=== PATIENT | male | born 1960 | race Caucasian/White ===

== ENCOUNTER 2016-10-07 09:49 | Inpatient (IN) | payer MEDICAID ==
[~2016-10-07] VITALS: Ht 175.3 cm; Wt 65.8 kg
[~2016-10-07 09:49] MED LIST: ASPIRIN325 MG PO; ATROVENT 0.02%2.5 ML UPD; BETAPACE 80 MG80 MG PO; BREO ELLIPTA 21 EACH; BROVANA15 MCG/2 M INH; DIFLUCAN100 MG PO; FLUTICASONE PRO16 GM NASAL; HYDROCODON-ACE1 EAC7 PO; MULTAQ400 MG PO; PEPCID20 MG PO; PULMICORT0.5 MG/21 INH; SINGULAIR10 MG PO; VIBRAMYCIN 100100 MG PO; ellipta INH
[2016-10-07 11:11] LABS: BASOPHILS 0.1 % (0.0-2.0); EOSINOPHILS 0 % (0-7); HEMATOCRIT 37.3 % (42.0-54.0); HEMOGLOBIN 13.4 g/dL (13.5-17.5); IMMATURE GRANULOCYTES 0.8 % (0-5); LYMPHOCYTES 6.9 % (15-50); MCH 34.4 pg (26.0-34.0); MCHC 35.9 g/dL (31.0-37.0); MCV 95.6 fL (80.0-100.0); MEAN PLATELET VOLUME 9.3 fL (7.4-10.4); NEUTROPHILS 81.2 % (40-80); RDW 15.6 % (11.5-14.5); WBC 14.1 10x3/uL (4.8-10.8)
[2016-10-07 11:16] LABS: PLATELET COUNT 176 10x3/uL (130-400)
[2016-10-07 11:30] LABS: ALBUMIN 3.4 g/dL (3.4-5.0); ANION GAP 13.1 mmol/L (8-16); BILIRUBIN - TOTAL 1.6 mg/dL (0.2-1.3); CALCIUM 8.8 mg/dL (8.5-10.1); CARBON DIOXIDE 26.6 mmol/L (21.0-32.0); CREATININE - SERUM 1.2 mg/dL (0.6-1.3); POTASSIUM - SERUM 3.7 mmol/L (3.5-5.1); PROTEIN - SERUM 6.8 g/dL (6.4-8.2)
[2016-10-07 15:15] VITALS: BP 139/65; BMI 21.4
[2016-10-07 16:27] VITALS: BP 135/65
[2016-10-07 21:14] VITALS: BP 104/65
--- NOTE | 2016-10-07 21:15 | NUR ---
1926: PATIENT'S HR BETWEEN 150-160'S A-FIB RVR PER 2019: SPOKE WITH DR. BEST. DR. BEST ASKED THAT CARDIOLOGY BE CONSULTED. DR. CORRAL ORDERED 5MG IV LOPRESSOR AND THE PATIENT'S 2100 DOSE OF SOTALOL BE GIVEN. 2055: IV LOPRESSOR PUSHED
--- NOTE | 2016-10-08 03:00 | NUR ---
PATIENT SLEEPING IN SEMI-FOWLERS POSITION. NO VISIBLE SIGNS OF DISTRESS. PATIENTS BED IN LOWEST POSITION AND CALL LIGHT WITHIN REACH.
[2016-10-08 05:28] LABS: HEMATOCRIT 35.8 % (42.0-54.0); HEMOGLOBIN 12.6 g/dL (13.5-17.5); MCH 33.7 pg (26.0-34.0); MCHC 35.2 g/dL (31.0-37.0); MCV 95.7 fL (80.0-100.0); MEAN PLATELET VOLUME 9.8 fL (7.4-10.4); PLATELET COUNT 178 10x3/uL (130-400); RBC 3.74 10x6/uL (4.20-6.10); RDW 15.5 % (11.5-14.5)
[2016-10-08 05:52] LABS: ALBUMIN 2.7 g/dL (3.4-5.0); ALKALINE PHOSPHATASE 46 U/L (46-116); ALT (SGPT) 15 U/L (10-68); CALC OSMOLALITY 258 mosm/kg (275-300); CALCIUM 8.6 mg/dL (8.5-10.1); CARBON DIOXIDE 22.7 mmol/L (21.0-32.0); CHLORIDE - SERUM 92 mmol/L (98-107); CREATININE - SERUM 0.9 mg/dL (0.6-1.3); GLUCOSE 114 mg/dL (74-106); POTASSIUM - SERUM 3.8 mmol/L (3.5-5.1); PROTEIN - SERUM 6.2 g/dL (6.4-8.2); SODIUM 127 mmol/L (136-145); UREA NITROGEN 20 mg/dL (7-18); eGFR NON AFRICAN AMERICAN > 90 mL/min (90-120)
[2016-10-08 08:12] LABS: LYMPHOCYTES 8 % (15-50); MONOCYTES 2 % (2-11); NEUTROPHILS 74 % (40-80); PLATELET ESTIMATE DECREASED
[2016-10-08 08:36] VITALS: BP 116/78
--- NOTE | 2016-10-08 09:48 | NUR ---
Patient Name: VALORIE VINCENT Admission Status: ER Accout number: [id number] Admission Date: 10-07-2016 : 1960 Admission Diagnosis: Attending: LYNSEY Current LOS: 1 Anticipated DC Date: 10-10-2016 Planned Disposition: Home or Self Care Primary Insurance: [place] [employer] [place] Discharge Planning Comments: CM MET WITH PATIENT REGARDING DISCHARGE NEEDS AND PLANS. PATIENT STATED HE LIVES WITH HIS GIRLFRIEND (DALTON) AND SHE WILL PICK HIM UP AT DISCHARGE. PATIENT STATED HE HAS 3 STEPS W/O RAILS TO ENTER HOME AND NO STAIRS INSIDE. PATIENT IS INDEPENDENT WITH HIS CARE AND HAS NO DME AT HOME. PATIENTS PCP IS DR. HANSON AND PHARMACY IS [facility] AT [place]. PATIENT STATED HE DOES NOT NEED HOME HEALTH AT THIS TIME. CM WILL CONTINUE TO FOLLOW PATIENT WITH D/C NEEDS AND PLANS. PCP DR[facility]- [phone] DALTON (GIRLFRIEND) [phone] Lamp Assembler: Fiona Mueller Is the patient Alert and Oriented? Yes 0 * How many steps to enter\exit or inside your home? 3 W/O RAIL 0 * PCP DR. HANSON 0 * Pharmacy [facility] [place] 0 * Preadmission Environment Home with Family 0 * ADLs Independent 0 * Equipment None 0 * List name and contact numbers for known caregivers / representatives who currently or will assist patient after discharge: DALTON SORIA (GIRLFRIEND) [phone] 0 * Community resources currently utilized None 0 * Additional services required to return to the preadmission environment? Yes 0 * Can the patient safely return to the preadmission environment? Yes 0 * Has this patient been hospitalized within the prior 30 days at any hospital? No 0 Grand Total: 0
[2016-10-08 13:10] VITALS: Ht 175.3 cm; Wt 65.8 kg
[2016-10-08 13:48] VITALS: BP 125/71
[2016-10-08 16:01] VITALS: BP 121/72
[2016-10-08 20:00] VITALS: BP 123/75
--- NOTE | 2016-10-09 00:55 | NUR ---
PT LAYING IN BED NO DISTRESS OBSERVED CALL LIGHT IN REACH SRX2 BED LOW AND LOCKED RIGHT INFUSA PROT INFUSING WITH FLUIDS ORDERED AND PT TOLERATING WELL. PT DENIES NEEDS WANTS OR PAIN AT THIS TIME AND PO HS MEDS ADMIN. WILL MONITOR
[2016-10-09 01:00] VITALS: BP 105/69
[2016-10-09 05:00] VITALS: BP 119/71
--- NOTE | 2016-10-09 05:19 | NUR ---
PT LAYING IN BED INFUSAPORT INFUSING ORDERED AND NO DISTRESS OBSERVED CALL LIGHT IN REACH SRX2 BED LOW AND LOCKED LABS DRAWN FROM PORT AND LAB RECIVED WAITING FOR RESULTS
[2016-10-09 05:37] LABS: BASOPHILS 0.1 % (0.0-2.0); EOSINOPHILS 0 % (0-7); HEMATOCRIT 33.8 % (42.0-54.0); IMMATURE GRANULOCYTES 0.3 % (0-5); LYMPHOCYTES 7.3 % (15-50); MCHC 35.5 g/dL (31.0-37.0); MCV 95.8 fL (80.0-100.0); MEAN PLATELET VOLUME 9.8 fL (7.4-10.4); MONOCYTES 8.8 % (2-11); NEUTROPHILS 83.5 % (40-80); PLATELET COUNT 202 10x3/uL (130-400); RBC 3.53 10x6/uL (4.20-6.10); RDW 15.6 % (11.5-14.5); WBC 13.7 10x3/uL (4.8-10.8)
[2016-10-09 05:55] LABS: ALBUMIN 2.5 g/dL (3.4-5.0); ALKALINE PHOSPHATASE 46 U/L (46-116); BILIRUBIN - TOTAL 0.75 mg/dL (0.2-1.3); CALCIUM 9.1 mg/dL (8.5-10.1); CARBON DIOXIDE 25.7 mmol/L (21.0-32.0); CHLORIDE - SERUM 93 mmol/L (98-107); CREATININE - SERUM 0.9 mg/dL (0.6-1.3); GLUCOSE 144 mg/dL (74-106); POTASSIUM - SERUM 3.8 mmol/L (3.5-5.1); PROTEIN - SERUM 7.2 g/dL (6.4-8.2); SODIUM 128 mmol/L (136-145); eGFR NON AFRICAN AMERICAN > 90 mL/min (90-120)
[2016-10-09 05:57] LABS: ALT (SGPT) 25 U/L (10-68); CALC OSMOLALITY 266 mosm/kg (275-300); UREA NITROGEN 31 mg/dL (7-18)
--- NOTE | 2016-10-09 07:43 | NUR ---
PT ASSESSMENT COMPLETE NO ACUTE DISTRESS NOTED LUNGS CLEAR WITH DIMINISHED LEFT BASE NO DIFFICULTY BREATHING NO COUGH NOTED AT THIS TIME. CAF ON MONITOR RATE OF 86 SCDS ON MAKES ALL NEEDS KNOWN CALL LIGHT IN REACH SIDE RAILS UP X 2
[2016-10-09 08:11] VITALS: BP 117/79
--- NOTE | 2016-10-09 10:44 | NUR ---
NO ACUTE DISTRESS SITTING UP IN CHAIR AT BEDSIDE CALL LIGHT IN REACH
[2016-10-09 11:40] VITALS: BP 124/72
--- NOTE | 2016-10-09 15:31 | NUR ---
PT RESTING IN BED NO ACUTE DISRTRESS NOTED COLLECTED SPUTUM CULTURE PER ORDER WELL URINE PER ORDER SENT TO LAB WILL MONITOR.
[2016-10-09 16:13] VITALS: BP 121/85
--- NOTE | 2016-10-09 16:20 | NUR ---
PATIENT SITTING UP IN CHAIR WITH NO COMPLAINTS AT THIS TIME. IV INTACT. O2 ON. CALL LIGHT WITHIN REACH.
--- NOTE | 2016-10-09 17:25 | NUR ---
PT AWAKE AND SITTING UP FAMILY VISITING ATE ONLY 3 BITES OF MEAL PT STATES THAT HIS APITITE IS VERY POOR WITH CHEMO
[2016-10-09 21:00] VITALS: BP 126/75
[2016-10-10 00:30] VITALS: BP 114/70
[2016-10-10 05:00] VITALS: BP 139/79
[2016-10-10 05:46] LABS: CALC OSMOLALITY 263 mosm/kg (275-300); CALCIUM 8.7 mg/dL (8.5-10.1); CARBON DIOXIDE 24.8 mmol/L (21.0-32.0); CHLORIDE - SERUM 94 mmol/L (98-107); CREATININE - SERUM 0.9 mg/dL (0.6-1.3); GLUCOSE 123 mg/dL (74-106); POTASSIUM - SERUM 3.6 mmol/L (3.5-5.1); SODIUM 128 mmol/L (136-145); UREA NITROGEN 30 mg/dL (7-18); eGFR NON AFRICAN AMERICAN > 90 mL/min (90-120)
--- NOTE | 2016-10-10 07:00 | NUR ---
REPORT RECIEVED ASSUMED CARE. PATIENT IN BED WITH IV INTACT. NO COMPLAINTS. CALL LIGHT WITHIN REACH.
[2016-10-10 07:51] VITALS: BP 145/81
--- NOTE | 2016-10-10 12:07 | NUR ---
NUTRITION MONITORING & EVAL CHART REVIEWED, PT VISIT. TOLERATING REG DIET. 100% INTAKE MOST MEALS. WILL CONTINUE TO HONOR FOOD PREFERENCES, MONITOR PT PROGRESS. RD FOLLOWING
[2016-10-10 12:29] VITALS: BP 146/77
[2016-10-10 16:37] VITALS: BP 137/78
--- NOTE | 2016-10-10 18:45 | NUR ---
PATIENT SITTING UP IN CHAIR WITH NO COMPLAINTS. IV INTACT. CALL LIGHTW ITHIN REACH.
[2016-10-10 19:00] VITALS: BP 139/57
[2016-10-11 04:00] VITALS: BP 135/61
--- NOTE | 2016-10-11 04:03 | NUR ---
ASSESSED AT THE BEGINNING OF THE SHIFT. HE IS ABLE TO VERBALIZE HIS NEEDS HE IS ALERT AND ORIENTED X'S 3 . HE IS WEARING TELEMETRY AND IT IS ABOUT 70 SINUS RHYTHM. HIS O2 IS AT 2 LITERS AND HE IS USING A URINAL OR GOING TO THE BATHROOM. HE IS PLEASANT AND STAYS UP IN HIS BEDSIDE CHAIR MOST OF THE EVENING. THE BED IS LOW, RAILS UP X'S 2 WITH THE CALL LIGHT AT HAND.
[2016-10-11 06:57] LABS: BASOPHILS 0 % (0.0-2.0); EOSINOPHILS 0.2 % (0-7); HEMATOCRIT 27.9 % (42.0-54.0); HEMOGLOBIN 9.8 g/dL (13.5-17.5); IMMATURE GRANULOCYTES 0.4 % (0-5); LYMPHOCYTES 9.5 % (15-50); MCHC 35.1 g/dL (31.0-37.0); MCV 96.9 fL (80.0-100.0); MEAN PLATELET VOLUME 9.6 fL (7.4-10.4); MONOCYTES 8.5 % (2-11); NEUTROPHILS 81.4 % (40-80); PLATELET COUNT 219 10x3/uL (130-400); RBC 2.88 10x6/uL (4.20-6.10); RDW 15.7 % (11.5-14.5)
--- NOTE | 2016-10-11 07:00 | NUR ---
PT REC'D FROM [facility]. RESTING IN CHAIR AT BEDSIDE. STREET CLOTHES ON. PT STATES, "I DON'T NEED TO BE HERE ANYMORE. I NEED TO GO HOME." TOLD PT THAT I WAS WAITING ON DC ORDERS. NO COMPLAINTS OF PAIN. AAOX4. CALL LIGHT IN REACH, DENIES NEEDS.
[2016-10-11 07:01] LABS: WBC 9.3 10x3/uL (4.8-10.8)
[2016-10-11 07:10] LABS: CALC OSMOLALITY 270 mosm/kg (275-300); CALCIUM 8.2 mg/dL (8.5-10.1); CARBON DIOXIDE 25.7 mmol/L (21.0-32.0); CHLORIDE - SERUM 99 mmol/L (98-107); CREATININE - SERUM 0.7 mg/dL (0.6-1.3); GLUCOSE 108 mg/dL (74-106); POTASSIUM - SERUM 3.7 mmol/L (3.5-5.1); SODIUM 133 mmol/L (136-145); UREA NITROGEN 23 mg/dL (7-18); eGFR NON AFRICAN AMERICAN > 90 mL/min (90-120)
[2016-10-11 08:55] VITALS: BP 156/73
--- NOTE | 2016-10-11 09:15 | NUR ---
MORNING MEDS PASSED AT THIS TIME. NO COMPLAINTS OF PAIN. PT WONDERING WHEN HE WILL BE DC'D. TOLD PT I WOULD TALK TO DR. BEST AND DR. TORO.
[2016-10-11] MEDS ORDERED: LOPRESSOR25 MG PO (12:34)
[2016-10-11] MEDS ORDERED: BENZONATATE200 MG PO (12:36)
[2016-10-11] MEDS ORDERED: PREDNISONE20 MG PO (12:40)
--- NOTE | 2016-10-11 14:14 | NUR ---
DISCUSSED DC INSTRUCTIONS WITH PT AND PT . NO QUESTIONS OR CONCERNS VOICED AT THIS TIME. DISCUSSED WHEN F/U APPOINTMENTS WOULD BE. R CHEST PORT DEACCESSED AND PRESSURE DRESSING APPLIED. ESCORTED OUT VIA WC. DC TO HOME.
--- NOTE | 2016-10-11 14:45 | NUR ---
DR Herrera ask if CM if any assistance was available for the patient. He lives in [place]. His has a job collecting eggs. CM provided contact card for the [employer] for referrals for assistance. CM will also research possible assistance w/ local churches. Will follow up on Thursday. Patient does not desire any home health services.
== END 2016-10-11 14:22 | disposition home or self-care (01) | DRG 190 ==
LOC: D.ER 09:49 → D.MS 14:05
PROVIDERS: Emergency Medicine; Internal Medicine Pulmonary Disease; ADMIT Internal Medicine Hematology & Oncology
DX: J44.0 Chronic obstructive pulmonary disease with (acute) lower respiratory infection (principal); J15.6 Pneumonia due to other Gram-negative bacteria; J13 Pneumonia due to Streptococcus pneumoniae; E87.1 Hypo-osmolality and hyponatremia; F17.203 Nicotine dependence unspecified, with withdrawal; C34.90 Malignant neoplasm of unspecified part of unspecified bronchus or lung; J44.1 Chronic obstructive pulmonary disease with (acute) exacerbation; I10 Essential (primary) hypertension; G47.33 Obstructive sleep apnea (adult) (pediatric); I48.91 Unspecified atrial fibrillation; D64.9 Anemia, unspecified; I08.1 Rheumatic disorders of both mitral and tricuspid valves

== ENCOUNTER 2016-10-13 19:37 | Inpatient (IN) | payer SELFPAY ==
[~2016-10-13] VITALS: Ht 175.3 cm; Wt 70.3 kg
[~2016-10-13 19:37] MED LIST changes: +BENZONATATE200 MG PO; +LOPRESSOR25 MG PO; +PREDNISONE20 MG PO
[2016-10-13 21:55] LABS: BASOPHILS 0 % (0.0-2.0); EOSINOPHILS 0.4 % (0-7); HEMATOCRIT 30.8 % (42.0-54.0); HEMOGLOBIN 10.7 g/dL (13.5-17.5); IMMATURE GRANULOCYTES 3.2 % (0-5); LYMPHOCYTES 14.7 % (15-50); MCH 33.5 pg (26.0-34.0); MCHC 34.7 g/dL (31.0-37.0); MCV 96.6 fL (80.0-100.0); MEAN PLATELET VOLUME 9.6 fL (7.4-10.4); MONOCYTES 13.5 % (2-11); NEUTROPHILS 68.2 % (40-80); RBC 3.19 10x6/uL (4.20-6.10); RDW 15.1 % (11.5-14.5); WBC 10.4 10x3/uL (4.8-10.8)
[2016-10-13 22:03] LABS: PLATELET COUNT 297 10x3/uL (130-400)
[2016-10-13 22:06] LABS: ALBUMIN 2.3 g/dL (3.4-5.0); ALKALINE PHOSPHATASE 63 U/L (46-116); ALT (SGPT) 49 U/L (10-68); CALC OSMOLALITY 259 mosm/kg (275-300); CARBON DIOXIDE 28.9 mmol/L (21.0-32.0); CHLORIDE - SERUM 93 mmol/L (98-107); CREATININE - SERUM 0.7 mg/dL (0.6-1.3); GLUCOSE 134 mg/dL (74-106); PROTEIN - SERUM 5.7 g/dL (6.4-8.2); SODIUM 129 mmol/L (136-145); UREA NITROGEN 10 mg/dL (7-18); eGFR NON AFRICAN AMERICAN > 90 mL/min (90-120)
[2016-10-13 22:09] LABS: POTASSIUM - SERUM 2.8 mmol/L (3.5-5.1)
[2016-10-13 22:15] LABS: TROPONIN-I < 0.017 ng/mL (0.000-0.060)
[2016-10-14] VITALS (20 sets, daily range): BP systolic 102–136; BP diastolic 54–78; Ht 175.3 cm; Wt 70.3 kg
--- NOTE | 2016-10-14 00:14 | NUR ---
REC'D TO ROOM 2316 VIA W/C FROM ER - PT AMBULATED SELF TO BED. ICU MONITORS ESTAB. SEE ADMISSION HISTORY AND ASSESSMENT. CARDIZEM GTT AT 10MG/HR INFUSING TO R CHEST INFUSAPORT, DSG C/D/I. CM - CAF. PT ALERT AND ORIENTED, ANSWERS ALL QUESTIONS APPROP. ALARMS ON. PT ORIENTED TO ICU - C/L IN REACH.
--- NOTE | 2016-10-14 01:32 | NUR ---
PT RESTING ON L SIDE, VSS. NO SIGN OF DISTRESS. CM - CAF.
--- NOTE | 2016-10-14 04:00 | NUR ---
REASSESSMENT PER FLOWSHEET, NO ACUTE CHANGES. PT AWAKENS EASILY, DENIES PAIN OR NEEDS. VSS, CM - CAF
[2016-10-14 07:38] LABS: BASOPHILS 0.1 % (0.0-2.0); EOSINOPHILS 0.4 % (0-7); HEMATOCRIT 28.3 % (42.0-54.0); HEMOGLOBIN 10.1 g/dL (13.5-17.5); LYMPHOCYTES 17.3 % (15-50); MCH 34.2 pg (26.0-34.0); MCHC 35.7 g/dL (31.0-37.0); MCV 95.9 fL (80.0-100.0); MEAN PLATELET VOLUME 9.4 fL (7.4-10.4); MONOCYTES 14.5 % (2-11); NEUTROPHILS 63.7 % (40-80); RBC 2.95 10x6/uL (4.20-6.10); RDW 15.1 % (11.5-14.5)
[2016-10-14 07:45] LABS: ALKALINE PHOSPHATASE 54 U/L (46-116); ALT (SGPT) 40 U/L (10-68); CALC OSMOLALITY 261 mosm/kg (275-300); CALCIUM 8.3 mg/dL (8.5-10.1); CARBON DIOXIDE 27.3 mmol/L (21.0-32.0); CHLORIDE - SERUM 97 mmol/L (98-107); CREATININE - SERUM 0.6 mg/dL (0.6-1.3); GLUCOSE 104 mg/dL (74-106); MAGNESIUM - SERUM 1.6 mg/dL (1.8-2.4); PLATELET COUNT 236 10x3/uL (130-400); POTASSIUM - SERUM 3.6 mmol/L (3.5-5.1); PROTEIN - SERUM 6.1 g/dL (6.4-8.2); SODIUM 131 mmol/L (136-145); UREA NITROGEN 10 mg/dL (7-18); eGFR NON AFRICAN AMERICAN > 90 mL/min (90-120)
--- NOTE | 2016-10-14 08:53 | NUR ---
0850-BREAKFAST TRAY GIVEN, CARDIOLOGY NOTIFIED OF CONSULT.
--- NOTE | 2016-10-14 13:40 | NUR ---
Is the patient Alert and Oriented? Yes 0 * How many steps to enter\exit or inside your home? 3 0 * PCP DR. HANSON 0 * Pharmacy [facility] IN [place] 0 * Preadmission Environment Home with Family 0 * ADLs Independent 0 * Equipment Nebulizer 0 * List name and contact numbers for known caregivers / representatives who currently or will assist patient after discharge: : DALTON [phone] 0 * Community resources currently utilized None 0 * Additional services required to return to the preadmission environment? No 0 * Can the patient safely return to the preadmission environment? Yes 0 * Has this patient been hospitalized within the prior 30 days at any hospital? Yes PATIENT STATES HE LIVES AT HOME WITH HIS , DALTON. SHE WILL BE AVAILABLE TO DRIVE HIM HOME AT DISCHARGE. PATIENT'S PCP IS DR. HANSON. HE GETS HIS MEDS AT [facility] IN [place]. PATIENT HAS A NEBULIZER THAT [facility] [employer] [facility] [address]. PATIENT DENIES EVER HAVING HOME HEALTH CARE. HE STATES THERE ARE 3 STEPS TO ENTER HIS HOME. NO DISCHARGE NEEDS AT THIS TIME.
--- NOTE | 2016-10-14 19:04 | NUR ---
RECIEVED FROM ICU. ALERT AND ORIENTED. TELEMETERY SHOWS CAF. DENIES ANY NEEDS. CALL LIGHT IN REACH
[2016-10-15 01:22] VITALS: BP 117/55
[2016-10-15 05:33] LABS: BASOPHILS 0.1 % (0.0-2.0); EOSINOPHILS 1.2 % (0-7); HEMATOCRIT 27.2 % (42.0-54.0); HEMOGLOBIN 9.6 g/dL (13.5-17.5); IMMATURE GRANULOCYTES 2.5 % (0-5); LYMPHOCYTES 18.7 % (15-50); MCH 34.2 pg (26.0-34.0); MCHC 35.3 g/dL (31.0-37.0); MCV 96.8 fL (80.0-100.0); MEAN PLATELET VOLUME 9.4 fL (7.4-10.4); MONOCYTES 14.1 % (2-11); NEUTROPHILS 63.4 % (40-80); PLATELET COUNT 278 10x3/uL (130-400); RBC 2.81 10x6/uL (4.20-6.10); RDW 15.4 % (11.5-14.5); WBC 8.2 10x3/uL (4.8-10.8)
[2016-10-15 05:51] LABS: CALC OSMOLALITY 263 mosm/kg (275-300); CALCIUM 7.9 mg/dL (8.5-10.1); CARBON DIOXIDE 27.7 mmol/L (21.0-32.0); CHLORIDE - SERUM 98 mmol/L (98-107); CREATININE - SERUM 0.6 mg/dL (0.6-1.3); GLUCOSE 92 mg/dL (74-106); POTASSIUM - SERUM 3.6 mmol/L (3.5-5.1); SODIUM 132 mmol/L (136-145); UREA NITROGEN 10 mg/dL (7-18); eGFR NON AFRICAN AMERICAN > 90 mL/min (90-120)
[2016-10-15 06:27] VITALS: BP 97/43
--- NOTE | 2016-10-15 07:24 | NUR ---
PT LAYING IN BED NO DISTRESS OBSERVED CALL LIGHT IN REACH SRX2 BED LOW AND LOCKED RESPERATIONS EVEN AND UNLABORED ON 2LNC AND PT RECIVING BREATHING TREATMENTS THROUGH THE NIGHT AND ANTIBX. IVP INFUSING AND NO INFALTRATION OBSERVED WILL MONITOR
[2016-10-15 07:50] VITALS: BP 122/56
--- NOTE | 2016-10-15 09:29 | NUR ---
TELEMETRY SR. IV PATENT. AT BS. CALL LIGHT IN REACH. WILL MONITOR NEEDS.
--- NOTE | 2016-10-15 10:51 | NUR ---
Nutrition follow-up: Diet: Low sodium PO intake 100% of last 3 meals Labs reviewed RDN helped pt fill out menus Wt: 152# RDN following.
[2016-10-15 11:59] VITALS: BP 116/54
[2016-10-15 12:05] LABS: APPEARANCE CLEAR (CLEAR); BILIRUBIN NEGATIVE (NEGATIVE); COLOR YELLOW (YELLOW); GLUCOSE NEGATIVE (NEGATIVE); KETONE NEGATIVE (NEGATIVE); LEUKOCYTE ESTERASE NEGATIVE (NEGATIVE); NITRITE NEGATIVE (NEGATIVE); PROTEIN NEGATIVE (NEGATIVE); SPECIFIC GRAVITY 1.005 (1.005-1.020); UROBILINOGEN NORMAL (NORMAL)
[2016-10-15 12:06] LABS: UDS - AMPHET NEGATIVE QUAL (NEGATIVE); UDS - BARB NEGATIVE QUAL (NEGATIVE); UDS - BENZO NEGATIVE QUAL (NEGATIVE); UDS - COCAINE NEGATIVE QUAL (NEGATIVE); UDS - METH NEGATIVE QUAL (NEGATIVE); UDS - OPIATE POSITIVE QUAL (NEGATIVE); UDS - PCP NEGATIVE QUAL (NEGATIVE); UDS - THC POSITIVE QUAL (NEGATIVE)
[2016-10-15 16:44] VITALS: BP 134/61
[2016-10-15 20:20] VITALS: BP 145/71
[2016-10-16 01:10] VITALS: BP 139/65
[2016-10-16 05:14] VITALS: BP 129/62
[2016-10-16 05:23] LABS: BASOPHILS 0.1 % (0.0-2.0); EOSINOPHILS 0.7 % (0-7); HEMATOCRIT 28.2 % (42.0-54.0); HEMOGLOBIN 9.8 g/dL (13.5-17.5); IMMATURE GRANULOCYTES 1.4 % (0-5); LYMPHOCYTES 13.2 % (15-50); MCHC 34.8 g/dL (31.0-37.0); MCV 97.9 fL (80.0-100.0); MEAN PLATELET VOLUME 9.5 fL (7.4-10.4); MONOCYTES 12.6 % (2-11); PLATELET COUNT 310 10x3/uL (130-400); RBC 2.88 10x6/uL (4.20-6.10); RDW 15.2 % (11.5-14.5); WBC 9.7 10x3/uL (4.8-10.8)
[2016-10-16 05:34] LABS: CALC OSMOLALITY 260 mosm/kg (275-300); CALCIUM 8.3 mg/dL (8.5-10.1); CARBON DIOXIDE 24.9 mmol/L (21.0-32.0); CHLORIDE - SERUM 98 mmol/L (98-107); CREATININE - SERUM 0.7 mg/dL (0.6-1.3); GLUCOSE 90 mg/dL (74-106); POTASSIUM - SERUM 3.6 mmol/L (3.5-5.1); SODIUM 131 mmol/L (136-145); eGFR NON AFRICAN AMERICAN > 90 mL/min (90-120)
[2016-10-16 05:40] LABS: UREA NITROGEN 7 mg/dL (7-18)
[2016-10-16 08:37] VITALS: BP 146/62
--- NOTE | 2016-10-16 09:18 | NUR ---
PT IS ALERT. ASSESSMENT DONE PER FLOWSHEET. NO CO PAIN AT THIS TIME. WILL CONTINUE TO MONITOR.
--- NOTE | 2016-10-16 12:22 | NUR ---
IV CARDIZEM GTT STOPPED PER LUIS MIGUEL ANDINO APN. NO OTHER NEEDS AT THIS TIME. CONTROL AFIB AT THIS TIME. 74
[2016-10-16 12:29] VITALS: BP 127/50
--- NOTE | 2016-10-16 13:59 | EC ---
PATIENT:VALORIE VINCENT DATE OF SERVICE: 10/13/16 SEX: M MEDICAL RECORD: [id number] DATE OF : [birth year] LOCATION:D. D.211 AGE OF PATIENT: 56 ADMISSION DATE: 10/13/16 REFERRING PHYSICIAN: INTERPRETING PHYSICIAN: MARIANELA GRAY MD ECHOCARDIOGRAM REPORT ECHO CHARGES 4 ECHO COMPLETE CLINICAL DIAGNOSIS: SYNCOPE ECHOCARDIOGRAPHIC MEASUREMENTS (adult normal given) AC root (d.<3.7cm) 2.6 LV Septum d (<1.2 cm> 1.2 Valve Excursion 1.1 LV Septum (systole) 2.0 Left Atria (s.<4.0cm> 3.6 LVPW d(<1.2cm) 1.4 RV (d.<2.3cm) 2.8 LVPW (sytole) 2.2 LV diastole(<5.6CM) 4.4 MV E-F(>70mm/sec) LV systole 1.1 LVOT Diameter 1.8 MV exc.(>10mm) Est.ejection fraction (50-75%) Pericardial Effusion N DOPPLER: LVIT A 45.0 E 131 LA RVSP 46.2 LVOT 141 AOP1/2T Asc. Ao 278 RVOT 64.0 RA PA 137 AV Gradient Peak 31.0 AV Mean 13.0 AV Area 1.2 MV Gradient Peak 11.0 MV Mean 2.0 MV Area COMMENTS: Sustainability Specialist: Cristofer JACINTOOE Anesthesiology Faculty:1 Dr. Gray TAPE# PACS DATE OF SERVICE: 10/15/2016 Echocardiogram FINDINGS: 1. Left ventricular chamber size is within normal limits. Left ventricular systolic function is normal. Overall ejection fraction estimated at 65%. 2. Left atrium is within normal limits at 3.6 cm. Right atrium and right ventricular chamber sizes are mildly dilated. 3. Valvular structures have normal structure and motion. ECHOCARDIOGRAM REPORT [id number] VALORIE VINCENT 4. Doppler interrogation reveals moderate mitral regurgitation, moderate tricuspid regurgitation, no other valvular insufficiency or stenosis. Pulmonary systolic pressure is mildly elevated, estimated at 46 mmHg. 5. No evidence of pericardial effusion or left ventricular thrombus. TRANSINT:[id number] Voice Confirmation ID: [id number] DOCUMENT ID: [id number] MARIANELA GRAY MD at 1356 CC: [id number] DICTATION DATE: 10/15/16 1603 FACILITIES OPERATIONS TECHNICIAN: 10/15/16 1646 ADM IN [facility] [address] [id number]
--- NOTE | 2016-10-16 14:12 | NUR ---
PT IS ALERT. NO SS OF DISTRESS AT THIS TIME. WILL CONTINUE TO ONITOR.
[2016-10-16 16:42] VITALS: BP 121/57
[2016-10-16 20:00] VITALS: BP 132/66
[2016-10-17 04:45] LABS: BASOPHILS 0.1 % (0.0-2.0); EOSINOPHILS 0.3 % (0-7); HEMOGLOBIN 9.7 g/dL (13.5-17.5); IMMATURE GRANULOCYTES 1.1 % (0-5); LYMPHOCYTES 12.8 % (15-50); MCH 33.7 pg (26.0-34.0); MCHC 34.6 g/dL (31.0-37.0); MCV 97.2 fL (80.0-100.0); MEAN PLATELET VOLUME 9.3 fL (7.4-10.4); MONOCYTES 10.4 % (2-11); NEUTROPHILS 75.3 % (40-80); PLATELET COUNT 280 10x3/uL (130-400); RBC 2.88 10x6/uL (4.20-6.10); RDW 15.1 % (11.5-14.5); WBC 11.7 10x3/uL (4.8-10.8)
[2016-10-17 04:56] LABS: CALC OSMOLALITY 262 mosm/kg (275-300); CALCIUM 7.5 mg/dL (8.5-10.1); CARBON DIOXIDE 25.6 mmol/L (21.0-32.0); CHLORIDE - SERUM 97 mmol/L (98-107); CREATININE - SERUM 0.7 mg/dL (0.6-1.3); GLUCOSE 97 mg/dL (74-106); POTASSIUM - SERUM 3.6 mmol/L (3.5-5.1); SODIUM 132 mmol/L (136-145); UREA NITROGEN 6 mg/dL (7-18); eGFR NON AFRICAN AMERICAN > 90 mL/min (90-120)
[2016-10-17 08:00] VITALS: BP 143/68
--- NOTE | 2016-10-17 09:25 | NUR ---
TELEMETRY CAF WITH HR 93. IV PATENT. UP IN CHAIR WITH CALL LIGHT IN REACH. WILL CONT. PLAN OF CARE.
[2016-10-17 12:00] VITALS: BP 114/69
--- NOTE | 2016-10-17 12:39 | CN ---
PATIENT NAME:VALORIE VINCENT MEDICAL RECORD: [id number] : 58 LOCATION:D. D.2118 ADMIT DATE: 10/13/16 ACCOUNT: [id number] CONSULTING PHYSICIAN: FILI LOWE MD REFERRING PHYSICIAN: TRACIE LYLES MD DATE OF CONSULTATION: 10/14/2016 CONSULT REQUESTING PHYSICIAN: Tracie Lyles MD. REASON FOR CONSULTATION: Pneumonia, right upper lobe, CA of the lung, syncopal episode. HISTORY OF PRESENT ILLNESS: Mr. Vincent is a 56-year-old gentleman, who was admitted last week with pneumonia and discharged home. According to the patient, he passed out at home. There was no seizure activity. Now, he is awake and alert. Also, in the ER, he was found that his pneumonia in the right upper lobe is getting worse. The patient had duk-iggwt-orpp carcinoma of the lung and he is on chemotherapy. So far, he got [address] Herrera. He is just feeling weak. This patient still continues to smoke. There is cough without significant sputum production. There is no hemoptysis. REVIEW OF SYSTEMS: Mainly in the history of present illness. PAST MEDICAL HISTORY: 1. COPD. 2. History of positive PPD and latent tuberculosis. 3. Pneumonia. 4. Chronic cough. 5. Osm-cmojl-lgjl carcinoma of the lung, on chemotherapy. PAST SURGICAL HISTORY: Status post bronchoscopy and lung biopsy. ALLERGIES: There are no known drug allergies. PRESENT MEDICATIONS: He is on Levaquin IV, albuterol/ipratropium nebulizer, Brovana, budesonide nebulizer. His other medication is reviewed. PERSONAL AND SOCIAL HISTORY: The patient is still smoking nearly a pack a day. He is a nondrinker. FAMILY HISTORY: Significant for diabetes and cardiovascular disease. PHYSICAL EXAMINATION: GENERAL: The patient is now lying comfortably in bed. He is not in acute distress. VITAL SIGNS: The blood pressure is 119/75, pulse is 81, respiration is 18, temperature 98.6, SpO2 is 95% on room air. HEENT: Conjunctivae pink, sclerae nonicteric. NECK: Supple, no JVD. CHEST: Excursion is minimal on both sides. There is dullness on percussion at the right apex. HEART: Rate and rhythm regular, normal sound, no murmur. ABDOMEN: Soft. Bowel sounds present. No hepatosplenomegaly. RECTAL: Deferred. EXTREMITIES: No cyanosis, no clubbing, no pedal edema. CONSULT REPORT [id number] VALORIE VINCENT SKIN: Warm, normal turgor. CENTRAL NERVOUS SYSTEM: The patient is awake and alert. There are no obvious cranial nerve abnormality. The gait was not tested. CHEST RADIOGRAPH: There is a worsening infiltrate in the right upper lobe. OTHER LABORATORY DATA: CBC: WBC is 10.4, hemoglobin 10.7, hematocrit 30.8. The platelet count is 297. Chemistry: Sodium 128, potassium 2.8, BUN is 10, creatinine 0.7, glucose 134. IMPRESSION: 1. Pneumonia, right upper lobe, most likely hospital-acquired pneumonia with recent hospitalization, possible obstructive pneumonia. 2. Ylw-ugdga-ieem carcinoma of the right upper lobe. 3. Right hilar mass. 4. Obstructive sleep apnea. 5. Tobacco dependence syndrome. 6. Anemia. 7. Chronic obstructive pulmonary disease without exacerbation. 8. Hyponatremia, possible syndrome of inappropriate antidiuretic hormone with pneumonia as well as the carcinoma of the lung. 9. History of latent tuberculosis in the past with positive PPD, treated with chemotherapy. 10. Syncopal episode. RECOMMENDATION: 1. Continue Levaquin. I will add Zosyn to cover for anaerobes and obstructive pneumonia. 2. Albuterol ipratropium nebulizer. 3. Budesonide and Brovana nebulizer. 4. Get the CT scan of the chest to rule out obstructive pneumonia. 5. CT scan of the head to rule out any brain metastasis. 6. Follow up labs in the morning. Probably, we will put the patient on fluid restriction if the hyponatremia is not improving. Dr. Lyles, once again, thanks for involving me in the care of Mr. Vincent. TRANSINT:[id number] Voice Confirmation ID: [id number] DOCUMENT ID: [id number] FILI LOWE MD at 1239 CC: [id number] DICTATION DATE: 10/14/16 1431 CHANNEL PROCESS SUPERVISOR: 10/14/16 1529 [place] [address]
[2016-10-17] MEDS ORDERED: CLEOCIN HCL300 MG PO (13:44)
[2016-10-17] MEDS ORDERED: LEVAQUIN750 MG PO (13:44)
[2016-10-17] MEDS ORDERED: CARDIZEM CD120 MG PO (13:45)
--- NOTE | 2016-10-17 14:12 | NUR ---
Nutrition Follow Up: Chart reviewed. Pt is eating 86% meal avg on an AHA diet. Wt gain of 7# since admit - likely r/t fluid. +BM 10/16/16. Meds and labs noted. Pt with good po intake at this time. Rec continue current diet. RD following.
--- NOTE | 2016-10-17 15:00 | NUR ---
DOCUMENTED NORCO ON NOV. DID NOT RECEIVE [facility]CO. PHARMACY NOTIFIED. FOR CORRECTION.
--- NOTE | 2016-10-17 16:04 | NUR ---
IV AND TELEMETRY DCD. DC PLANS GIVEN. UNDERSTANDING VOICED. ESCORTED TO CAR BY W/C.
== END 2016-10-17 16:05 | disposition home or self-care (01) | DRG 190 ==
LOC: D.ER 19:37 → D.M2 22:52 → D.ICU 22:52 → D.M2 10-14 18:53
PROVIDERS: Emergency Medicine Emergency Medical Services; Physician Assistant Medical; ADMIT Emergency Medicine
DX: J44.0 Chronic obstructive pulmonary disease with (acute) lower respiratory infection (principal); J18.9 Pneumonia, unspecified organism; C34.11 Malignant neoplasm of upper lobe, right bronchus or lung; E22.2 Syndrome of inappropriate secretion of antidiuretic hormone; R55 Syncope and collapse; I48.91 Unspecified atrial fibrillation; I10 Essential (primary) hypertension; F17.200 Nicotine dependence, unspecified, uncomplicated; G47.33 Obstructive sleep apnea (adult) (pediatric); D64.9 Anemia, unspecified; E87.6 Hypokalemia

== ENCOUNTER → 2016-10-23 12:51 | Outpatient (CLI) | payer MEDICAID ==
[2016-10-14 09:35] VITALS: BMI 21.8
[~2016-10-23 12:51] MED LIST changes: +CARDIZEM CD120 MG PO; +CLEOCIN HCL300 MG PO; +LEVAQUIN750 MG PO
== END | disposition home or self-care (01) ==
LOC: D.US 12:51
DX: R13.10 Dysphagia, unspecified (principal)

== ENCOUNTER → 2017-03-13 07:18 | Outpatient (CLI) | payer MEDICAID ==
[2016-10-14 09:35] VITALS: BMI 21.8
== END ==
LOC: D.RAD 07:18
DX: J44.9 Chronic obstructive pulmonary disease, unspecified (principal)